=== PATIENT | female | born 1980 | race Caucasian/White ===

== ENCOUNTER 2021-04-21 15:34 | Emergency (ER) | payer OTHER ==
[~2021-04-21 15:34] MED LIST: BENTYL 10MG CAP10 MG PO; CYCLOBENZAPRINE5 MG PO; NAPROSYN500 MG PO; ZITHROMAX250 MG PO; ZOFRAN4 MG PO
[2021-04-21 18:17] LABS: HEMOGLOBIN 16.7 gm/dl (12.3-15.3); RED BLOOD COUNT 5.61 M/UL (4.00-5.10); WHITE BLOOD COUNT 12.4 K/UL (4.5-11.0)
[2021-04-21 20:02] LABS: BUN/CREATININE RATIO 14 (0-10)
[2021-04-21] MEDS ORDERED: CATAPRES 0.1MG0.1 MG PO (21:52)
== END 2021-04-21 22:15 | disposition home or self-care (01) ==
LOC: ER1 15:34
PROVIDERS: Physician Assistant
DX: R51.9 Headache, unspecified (principal); R19.7 Diarrhea, unspecified; H92.01 Otalgia, right ear; R11.2 Nausea with vomiting, unspecified; I10 Essential (primary) hypertension; Z90.49 Acquired absence of other specified parts of digestive tract; F17.200 Nicotine dependence, unspecified, uncomplicated; Z88.0 Allergy status to penicillin; Z88.6 Allergy status to analgesic agent; Z20.822 Contact with and (suspected) exposure to COVID-19
CPT/HCPCS: 70450; 80053; 82550; 82553; 83874; 84484; 84703; 85025; 96374; 96375; 99284; J0360; J2270; J2405; U0002